=== PATIENT | male | born 1950 | race Caucasian/White ===

== ENCOUNTER 2023-07-26 12:40 | Day surgery (SDC) | payer OTHER ==
[2023-07-22 11:41] LABS: BASOPHILS # (AUTO) 0.1 X10'3 (0-0.2); BASOPHILS % (AUTO) 0.6 % (0-1); EOSINOPHILS # (AUTO) 0.1 X10'3 (0-0.9); EOSINOPHILS % (AUTO) 0.5 % (0-6); LYMPHOCYTES # (AUTO) 1.7 X10'3 (1.1-4.8); LYMPHOCYTES % (AUTO) 17.5 % (21-51); MEAN CORPUSCULAR HEMOGLOBIN 32.2 PG (27.0-31.0); MEAN CORPUSCULAR HGB CONC 34.4 g/dL (33.0-36.5); MEAN CORPUSCULAR VOLUME 93.6 FL (78-98); MEAN PLATELET VOLUME 8.1 FL (7.4-10.4); MONOCYTES # (AUTO) 0.8 X10'3 (0-0.9); NEUTROPHILS % (AUTO) 73.4 % (42-75); PRE OP HEMATOCRIT 46.8 % (42.0-52.0); PRE OP HEMOGLOBIN 16.1 g/dL (14.0-17.9); PRE OP PLATELET COUNT 307 X10'3 (140-440); PRE OP WHITE BLOOD COUNT 9.6 10'3 (4.8-10.8); RED CELL DISTRIBUTION WIDTH 13.8 % (11.5-14.5)
[2023-07-22 11:52] LABS: ALBUMIN 4.3 G/DL (3.4-5.0); ALBUMIN/GLOBULIN RATIO 0.9 (1.1-1.5); ALKALINE PHOSPHATASE 76 IU/L (46-116); BLOOD UREA NITROGEN 8 MG/DL (7-18); BUN/CREATININE RATIO 7.6 (10.0-20.0); CALCIUM 9.2 MG/DL (8.5-10.1); CHLORIDE 102 MMOL/L (99-107); CREATININE 1.05 MG/DL (0.60-1.10); PRE OP ALT 21 U/L (30-65); PRE OP ANION GAP 10 (8-16); PRE OP AST 16 U/L (10-37); PRE OP BILIRUB, TOTAL 0.6 MG/DL (0.0-1.0); PRE OP GLUCOSE 116 MG/DL (70-104); PRE OP SODIUM 140 MMOL/L (135-145); TOTAL CARBON DIOXIDE 28.4 MMOL/L (24-32); TOTAL PROTEIN 9.2 G/DL (6.4-8.2); eGFR 70 ML/MIN
[2023-07-22 12:56] LABS: PRE OP POTASSIUM 3.2 MMOL/L (3.4-5.1)
[2023-07-26] VITALS (16 sets, daily range): BP systolic 122–150; BP diastolic 71–98; PULSE 69–82; RESP 8–17; TEMP 99.1; O2SAT 95–100
[~2023-07-26] VITALS: Ht 172.7 cm; Wt 73.3 kg
[~2023-07-26 12:40] MED LIST: AMLO-708 PO; LISI40TA13 PO; cefazolin 2gm/D5W 100mL 100 ML IV ONE; famotidine 20mg tablet PO ONE; ringers solution, lacted 1,000 ML IV SCH
[2023-07-26] MEDS ORDERED: morphine 2 MG/ML inj. syringe IV PRN (14:50)
[2023-07-26] MEDS ORDERED: ondansetron/PF 4mg/2ml inj IV PRN (14:50)
[2023-07-26] MEDS ORDERED: proCHLORperazine 10 MG/2 ml inj IV PRN (14:50)
[2023-07-26] MEDS ORDERED: meperidine/PF 25mg/ml syringe IV PRN ×3 (14:50)
[2023-07-26] MEDS ORDERED: ringers solution, lacted 1,000 ML IV SCH (14:50)
[2023-07-26] MEDS ORDERED: morphine 4 MG/ML inj SYRINge IV PRN (14:50)
[2023-07-26] MEDS ORDERED: BUPIVAcaine/PF 5 mg/ml 10ml ONE (14:53)
[2023-07-26] MEDS ORDERED: midazolam 1 mg/ML 2ml injection ONE (15:05)
[2023-07-26] MEDS ORDERED: fentaNYL/PF 50MCG/1 ML 2ML syringe ONE (15:05)
[2023-07-26] MEDS ORDERED: propofol inj 20 ML IV ONE (15:05)
[2023-07-26] MEDS ORDERED: sevoflurane 250ml liquid IH ONE (15:08)
[2023-07-26] MEDS ORDERED: dexamethasone sod phosphate 4mg/ml inj. ONE (15:35)
[2023-07-26] MEDS ORDERED: ondansetron/PF 4mg/2ml inj ONE (15:35)
--- NOTE | 2023-07-26 16:12 | NUR ---
Received from OR via [facility] TO [facility] 8, accompanied by Anesthesiologist PATRICIO and report given by Anesthesiolgist. PT PRESENTS ON 6L VIA MASK. VSS, NO C/O PAIN/NAUSEA. NO S/S OF DISTRESS. DRESING TO RLQ: CDI. LR RUNNING THRU PIV. WILL CONTINUE TO ASSESS
[2023-07-26] MEDS ORDERED: HYDROcodone/acetaminophen 10/325mg tab PO ONE (16:40)
--- NOTE | 2023-07-26 18:22 | NUR ---
Patient ready for d/c per MD orders. All d/c ppwk was rev'd with patient. All questions, comments, concerns were answered at this time. Educated on the importance having supervision for the next 24 hrs, no bearing down, constipation, remembering to breathe. Pt verbalized understanding. Patient was able to ambulate safely with no loss of balance with minimal assistance within the department and was able to urinate multiple times with no issues. RLQ dressing, CDI. Patient was wheeled out in W/C to private vehicle where family was waiting. Transferred to vehicle without incident.
== END 2023-07-26 18:22 | disposition home or self-care (01) ==
LOC: PAS 12:40
PROVIDERS: ATTEND Surgery
DX: K40.90 Unilateral inguinal hernia, without obstruction or gangrene, not specified as recurrent (principal); F31.9 Bipolar disorder, unspecified; I10 Essential (primary) hypertension; F43.10 Post-traumatic stress disorder, unspecified; Z79.899 Other long term (current) drug therapy; Z98.890 Other specified postprocedural states; Z88.7 Allergy status to serum and vaccine
CPT/HCPCS: 36415; 49505; 80053; 82948; 85025; C1781; J0690; J1100; J2250; J2405; J2704; J3010; J3490; J7030; J7120; Z7506; Z7508; Z7512; A4215; A4618; A6449; A7000